=== PATIENT | male | born 1935 | race Caucasian/White ===

== ENCOUNTER 2018-06-25 11:06 | Inpatient (IN) | payer MEDICARE ==
[~2018-06-25] VITALS: Ht 185.4 cm; Wt 126.2 kg
--- NOTE | 2018-06-25 11:15 | NUR ---
PT BIB [facility] TRANSPORTED BY GROUND FROM [facility] IN [place]. PT HAS HAD INCREASING WEAKNESS AND HIGH FEVERS AT HOME. WHILE AT [facility], FEVER OF 103. PT WITH OCC. COUGH. 2 IV STARTED AT HOSPTIAL. ANTIBIOTICS GIVEN PRIOR TO ARRIVAL AND ASPIRIN 162MG GIVEN PRIOR TO TRANSFER. PT A&OX1 WHICH IS BASELINE DUE TO HIS DEMENTIA. PT IN 3RD DEGREE HB PRIOR TO TRANSFER. PT PLACED IN TRAUMA 4 AND PLACED ON BP, CARDIAC AND CONT. PULSE OXIMETER. EKG DONE AND PRESENTED TO MD. PT IN 3RD DEGREE HB. ASSESSMENT COMPLETED. ED MD AT BEDSIDE.
[2018-06-25] MEDS ORDERED: SODIUM CHLORIDE FLUSH 10ML SYR IVF ONE (11:30)
--- NOTE | 2018-06-25 11:43 | NUR ---
DR. COLLINS AT BEDSIDE.
[2018-06-25 11:47] LABS: MEAN CORPUSCULAR HEMOGLOBIN 32.6 pg (27.5-34.5); MEAN CORPUSCULAR HGB CONC 33.2 g/dL (33.2-36.2); MEAN CORPUSCULAR VOLUME 98.1 fL (81-97); MEAN PLATELET VOLUME 9.8 fL (7.4-10.4); PLATELET COUNT 151 x10^3/uL (130-400); RED BLOOD COUNT 4.06 x10^6/uL (4.38-5.82)
--- NOTE | 2018-06-25 11:52 | NUR ---
FAMILY MEMBER AT BEDSIDE.
[2018-06-25 11:58] LABS: INTERNATIONAL NORMALIZED RATIO 1.29 (0.93-1.1); PROTHROMBIN TIME 13.5 Seconds (9.6-11.5)
[2018-06-25 12:01] LABS: ANION GAP 2 mmol/L (5-15); CALCIUM 9.2 mg/dL (8.5-10.1); CHLORIDE 108 mmol/L (98-107)
[2018-06-25 12:09] LABS: ALANINE AMINOTRANSFERASE 19 U/L (12-78); ALKALINE PHOSPHATASE 68 U/L (45-117); BILIRUBIN,TOTAL 1.2 mg/dL (0.2-1.0); CREATININE 1.38 mg/dL (0.7-1.3); T4 (THYROXINE) 6.3 mcg/dL (4.5-12.1); TOTAL PROTEIN 6.2 g/dL (6.4-8.2)
[2018-06-25 12:19] LABS: THYROID STIMULATING HORMONE 0.539 mIU/L (0.358-3.740)
[2018-06-25] MEDS ORDERED: RIVA20TA PO (12:21)
[2018-06-25] MEDS ORDERED: POTA20PA31 PO (12:21)
[2018-06-25] MEDS ORDERED: POTA20TA91 PO (12:21)
[2018-06-25] MEDS ORDERED: FURO80TA77 PO (12:21)
--- NOTE | 2018-06-25 12:33 | NUR ---
PT REPOSITIONED, MEAL TRAY ORDERED, SIPPING COFFEE, AFEBRILE AT THIS TIME, CONT TO MONITOR HR AND BP
[2018-06-25 12:38] LABS: MD YES
[2018-06-25 12:40] LABS: BAND#(MANUAL) 1.13 x10^3/uL; BANDS%(MANUAL) 10 % (0-7); LYMPH#(MANUAL) 0.68 x10^3/uL (1-3.4); LYMPHS% (MANUAL) 6 % (22-44); MONOS#(MANUAL) 1.58 x10^3/uL (0.3-2.7); MONOS% (MANUAL) 14 % (2-9); SEG#(MANUAL) 7.91 x10^3/uL (1.8-6.8); SEGS% (MANUAL) 70 % (42-75)
[2018-06-25 12:41] LABS: <RBC MORPHOLOGY> NORMAL
[2018-06-25 12:42] LABS: <PLATELET ESTIMATE> ADEQUATE; <PLT MORPHOLOGY> NORMAL PLT MORPH
[2018-06-25] MEDS ORDERED: VANCOMYCIN PMX 1GM/200ML 200 ML IVPB SCH (13:00)
[2018-06-25 13:01] LABS: MICROSCOPIC INDICATED
[2018-06-25 13:15] LABS: CULTURE INDICATED? NO
--- NOTE | 2018-06-25 13:34 | NUR ---
PT TRYING TO CRAWL OUT OF BED. PT PLACED BACK IN BED AND REPOSITIONED. SON AT BEDSIDE.
--- NOTE | 2018-06-25 14:03 | NUR ---
PT GIVEN MEAL TRAY. CALLED BAG PRESS OPERATOR TO MAKE SURE PT WAS NOT ON SCHEDULE FOR TODAY. PER DR. COLLINS VERBAL ORDER PT TO GO TO HAVE PACE [facility] PLACED TOMORROW
--- NOTE | 2018-06-25 15:01 | NUR ---
PT RESTING IN BED. SON AT BEDSIDE. AWAITING BED.
[2018-06-25] MEDS ORDERED: DOCUSATE 100 MG CAPSULE PO PRN (16:00)
[2018-06-25] MEDS ORDERED: ONDANSETRON ODT 4 MG PO PRN (16:00)
[2018-06-25] MEDS ORDERED: ACETAMINOPHEN 325 MG TABLET PO PRN (16:00)
[2018-06-25] MEDS ORDERED: BISACODYL 10 MG SUPP PR PRN (16:00)
[2018-06-25] MEDS ORDERED: ONDANSETRON 2MG/ML, 2ML IVPush PRN (16:00)
[2018-06-25] MEDS ORDERED: POLYETHYLENE GLYCOL 17 GM PACKET PO PRN (16:00)
[2018-06-25] MEDS ORDERED: OXYcodone IR 5MG TABLET PO PRN (16:00)
[2018-06-25] MEDS ORDERED: morphine SULFATE 10 MG/ML, 1ML IVPush PRN (16:00)
[2018-06-25] MEDS ORDERED: hydrALAzine 20 MG/ML, 1ML IVPush PRN (16:00)
[2018-06-25] MEDS ORDERED: PROMETHAZINE 25 MG/ML, 1ML IM PRN (16:00)
--- NOTE | 2018-06-25 16:30 | NUR ---
received bed and will call report
[2018-06-25 17:10] VITALS: BP 159/60
[2018-06-25] MEDS ORDERED: FUROSEMIDE 40 MG/4 ML ONE (18:09)
[2018-06-25 18:15] VITALS: BP 152/88
[2018-06-25] MEDS ORDERED: FUROSEMIDE 40 MG/4 ML IV ONE (18:30)
[2018-06-25 19:08] VITALS: BP 144/56
[2018-06-25 19:08] LABS: HEMOGLOBIN A1C 5.5 % (4.2-6.3)
[2018-06-25] MEDS ORDERED: CODE BLUE RESPONSE XX ONE (21:37)
[2018-06-25] MEDS ORDERED: EPINEPHRINE SYRINGE 0.1 MG/ML, 10ML ONE (21:39)
[2018-06-25] MEDS ORDERED: ETOMIDATE 20 MG/10 ML ONE (21:39)
[2018-06-25] MEDS ORDERED: SODIUM BICARBONATE 1 MEQ/ML, 50ML VIAL ONE (21:39)
[2018-06-25] MEDS ORDERED: SUCCINYLCHOLINE 20 MG/ML, 10ML ONE (21:39)
[2018-06-26] MEDS ORDERED: SODIUM CHLORIDE 0.9% 1,000 ML IV SCH (06:00)
== END 2018-06-26 01:58 | disposition expired ==
LOC: ED 12:07 → EDIP 12:48 → 5SO 16:34
PROVIDERS: ADMIT Internal Medicine; ATTEND Internal Medicine
PROC: 5A12012 Performance of Cardiac Output, Single, Manual (ICD-10-PCS; principal; 2018-06-25)
PROC: 0BH17EZ Insertion of Endotracheal Airway into Trachea, Via Natural or Artificial Opening (ICD-10-PCS; 2018-06-25)
DX: I21.4 Non-ST elevation (NSTEMI) myocardial infarction (principal); N17.0 Acute kidney failure with tubular necrosis; I44.2 Atrioventricular block, complete; E44.0 Moderate protein-calorie malnutrition; D68.69 Other thrombophilia; I47.2 Ventricular tachycardia; I11.0 Hypertensive heart disease with heart failure; D53.9 Nutritional anemia, unspecified; E78.5 Hyperlipidemia, unspecified; F02.80 Dementia in other diseases classified elsewhere, unspecified severity, without behavioral disturbance, psychotic disturbance, mood disturbance, and anxiety; G30.9 Alzheimer's disease, unspecified; I25.10 Atherosclerotic heart disease of native coronary artery without angina pectoris; I45.5 Other specified heart block; I46.9 Cardiac arrest, cause unspecified; I48.91 Unspecified atrial fibrillation; I50.9 Heart failure, unspecified; J44.9 Chronic obstructive pulmonary disease, unspecified; Z79.01 Long term (current) use of anticoagulants; Z87.891 Personal history of nicotine dependence; Z68.36 Body mass index [BMI] 36.0-36.9, adult
CPT/HCPCS: 36415; 71045; 80053; 81001; 82306; 82607; 83036; 83605; 83735; 83880; 84436; 84443; 84484; 85025; 85610; 85730; 92950; 93005; 99285; G0378; J1940; J0330; J7030